=== PATIENT | female | born 1995 | race Caucasian/White ===

== ENCOUNTER → 2017-03-11 | Outpatient (CLI) | payer MEDICAID | LOC: HPND 08:19 | PROVIDERS: ATTEND Obstetrics & Gynecology | DX: O30.042 Twin pregnancy, dichorionic/diamniotic, second trimester (principal); O99.212 Obesity complicating pregnancy, second trimester | CPT/HCPCS: 76811; 76812; 76817 ==

== ENCOUNTER → 2017-04-09 | Outpatient (CLI) | payer MEDICAID | LOC: HPND 10:34 | PROVIDERS: ATTEND Obstetrics & Gynecology | DX: O30.042 Twin pregnancy, dichorionic/diamniotic, second trimester (principal) | CPT/HCPCS: 76816; 76817 ==

== ENCOUNTER → 2017-05-09 | Outpatient (CLI) | payer MEDICAID | LOC: HPND 08:17 | PROVIDERS: ATTEND Obstetrics & Gynecology | DX: O99.213 Obesity complicating pregnancy, third trimester (principal); E66.01 Morbid (severe) obesity due to excess calories; Z68.42 Body mass index [BMI] 45.0-49.9, adult; Z3A.28 28 weeks gestation of pregnancy | CPT/HCPCS: 76816 ==